=== PATIENT | male | born 1955 | race Caucasian/White ===

== ENCOUNTER 2019-08-26 15:41 | Outpatient (CLI) | payer MEDICARE ==
--- NOTE | 2019-08-29 16:04 | MRI ---
MRI RIGHT KNEE WITHOUT CONTRAST: 08/29/19 HISTORY: M23.91, internal derangement of right knee. Evaluate for meniscal tear. COMPARISON: None. FINDINGS: MEDIAL MENISCUS: There is a very faint peripheral most vertical osteomeatal tear of the posterior horn and body juncti on medial meniscus with low grade adjacent capsular edema. There is also a low grade radial tear of t he posterior horn medial meniscus 9 mm from the root involving the free edge and portion of the inter mediate zone. LATERAL MENISCUS: Intact. ACL has mild intraligamentous degeneration with ganglion pseudocyst. The posterior cruciate ligament is intact as well as the medial and lateral collateral ligaments. EXTENSOR MECHANISM: Quadriceps tendon, patella and patellar tendon are all intact. CARTILAGE: Patellofemoral compartment: There is a single full thickness cartilage fissure of the medial trochlea with early subcortical reac tive marrow edema. A few cartilage fissures of 50 to 75% thickness of the central trochlea. Medial compartment: Minimal chondral dehydration. No full thickness defect. Lateral compartment: There is 50 to 75% chondral fraying throughout the central weightbearing surface lateral femoral cond yle without full thickness detect. No significant delamination. MUSCLES: The muscle signal and bulk is normal. SOFT TISSUES: No significant joint effusion. Trace semimembranosus bursa effusion. IMPRESSION: 1. Fairly low grade peripheral vertical tear to the posterior horn and body junction medial meni scus at the capsule with mild pericapsular edema. 2. Faint radial tear involving the free edge of the medial meniscal body, 9 mm from the footprin t. 3. No gutter extrusion of the medial meniscus. 4. A single full thickness cartilage fissure of the medial patellar facet with early subcortical reactive marrow edema axial image 20. 5. 50 to 75% chondral fraying throughout the central weightbearing surface lateral to the platea u without a full thickness chondral defect, delamination, or subcortical reactive marrow changes. 6. A few 75% chondral fissures of the central trochlea. POS: CET
== END 2019-08-26 15:42 | disposition home or self-care (01) ==
LOC: SCSMRI 15:41
PROVIDERS: ATTEND Orthopaedic Surgery
DX: M23.91 Unspecified internal derangement of right knee (principal); M94.8X6 Other specified disorders of cartilage, lower leg

== ENCOUNTER 2019-12-05 06:49 | Outpatient (CLI) | payer MEDICARE, OTHER ==
[2019-12-05 16:53] LABS: #Basophils 0.1 thou/uL (0.0-0.2); #Eosinphils 0.1 thou/uL (0.0-0.7); #Lymphocytes 3.1 thou/uL (1.20-3.40); #Monocytes 0.6 thou/uL (0.11-0.59); #Neutrophils 4.2 thou/uL (1.40-6.50); %Basophils 0.9 % (0.0-1.0); %Eosinophils 1.3 % (0.0-10.0); %Lymphocytes 38.6 % (21.0-51.0); %Monocytes 7.4 % (0.0-10.0); %Neutrophils 51.7 % (42.0-75.0); Mean Corpuscular HGB CONC 34.2 g/dL (32.0-36.0); Mean Corpuscular Hemoglobin 31.5 pg (27.0-31.0); Mean Corpuscular Volume 92.2 fL (78.0-98.0); Mean Platelet Volume 7.1 fL (7.4-10.4); Platelet Count 201 thou/uL (130-400); RBC Distribution Width 11.9 % (11.5-14.5); Red Blood Cell (RBC) Count 4.76 mill/uL (4.70-6.10); White Blood Cell (WBC) Count 8.1 thou/uL (4.8-10.8)
[2019-12-05 17:13] LABS: Anion Gap 11 mmol/L (10-20); BUN (Urea Nitrogen) 12 mg/dL (8.4-25.7); Calc. Creatinine Clearance 0 mL/min (70-130); Calcium 9.2 mg/dL (7.8-10.44); Carbon Dioxide 25 mmol/L (23-31); Chloride 108 mmol/L (98-107); Estimated GFR-MDRD 60; Glucose 89 mg/dL (80-115); Sodium 140 mmol/L (136-145)
[2019-12-06 17:22] LABS: SARS-CoV-2 MS2 Positive; SARS-CoV-2 N Gene Negative; SARS-CoV-2 S Gene Negative; SARS-CoV-2 orf1ab Negative
== END 2019-12-05 06:50 | disposition home or self-care (01) ==
LOC: LABBT 06:49
PROVIDERS: ATTEND Orthopaedic Surgery
DX: Z01.818 Encounter for other preprocedural examination (principal); Z11.59 Encounter for screening for other viral diseases; M23.91 Unspecified internal derangement of right knee
CPT/HCPCS: 80048; 85025; 93005; U0003; 87635; 93010

== ENCOUNTER 2019-12-10 08:22 | Day surgery (SDC) | payer MEDICARE ==
[2019-12-05 15:18] VITALS: BMI 28.6
--- NOTE | 2019-12-10 08:41 | HP ---
HISTORY OF PRESENT ILLNESS: The patient is a 63-year-old male with a several year history of progressive pain to the right knee, which has become worse especially recently without specific injury. He has pain with activities including kneeling. He only had partial relief with use of NSAIDs and previous cortisone injection, which only gave temporary relief. He is not having pain with day-to-day activities. PAST MEDICAL HISTORY: The patient has history of hyperlipidemia, anemia, hypertension, chronic kidney disease, BPH. CURRENT MEDICATIONS: Include: 1. Meloxicam. 2. Zyrtec. 3. Metoprolol. 4. Omeprazole. 5. Potassium. ALLERGIES: HE IS ALLERGIC TO LIPITOR. FAMILY HISTORY: Otherwise unremarkable. SOCIAL HISTORY: Otherwise unremarkable. REVIEW OF SYSTEMS: Otherwise unremarkable. PHYSICAL EXAMINATION: GENERAL: Reveals a healthy male. HEENT: Unremarkable. NECK: Supple. CHEST: Clear. HEART: Regular rhythm. ABDOMEN: Soft, nontender. RECTAL: Deferred. GENITAL: Deferred. EXTREMITIES: Pertinent findings related to the right knee. There is no effusion. There is normal alignment. There is tenderness over the medial joint line. Range of motion is 0 to 135 degrees. There is no instability. Has palpable distal pulses. DIAGNOSTIC STUDIES: X-rays of his right knee reveal mild degenerative changes with good joint space remaining. MRI scan of the right knee reveals a possible peripheral tear of the posterior horn of the medial meniscus and a radial tear involving the meniscal body. There are mild degenerative changes. IMPRESSION: Internal derangement of right knee. Possible medial meniscal tear, possible component of degenerative joint disease. PLAN: Arthroscopy, right knee with partial medial meniscectomy and/or debridement and shaving. The nature of the surgery, length of recovery, potential complications such as infection, loss of motion, incomplete relief, thromboembolic phenomena, neurovascular injury, progression of DJD, recurrent tear, need for additional treatment, repeat surgery have been discussed in detail. Job ID: [id number]
[2019-12-10] MEDS ORDERED: Fentanyl 100 MCG/2 ML VIAL ONE (08:54)
[2019-12-10] MEDS ORDERED: Bupivacaine 0.25% HCL 30 ML VIAL ONE (09:00)
[2019-12-10] MEDS ORDERED: Lidocaine 1% w/Epinephrine 1:100K 20 ML VIAL ONE (09:00)
[2019-12-10] MEDS ORDERED: SUGAMMADEX SODIUM 200 MG/2 ML VIAL ONE (10:27)
[2019-12-10] MEDS ORDERED: Lidocaine 1% PF 5 ML VIAL ONE (11:36)
[2019-12-10] MEDS ORDERED: EPHEDRINE 25 MG/5 ML SYRINGE ONE (11:36)
[2019-12-10] MEDS ORDERED: Glycopyrrolate 0.2 MG/ML 5 ML SYRINGE ONE (11:36)
[2019-12-10] MEDS ORDERED: Rocuronium Bromide 10 MG/ML (10ML VIAL) ONE (11:36)
[2019-12-10] MEDS ORDERED: PROPOFOL 200 MG/20 ML VIAL ONE (11:36)
[2019-12-10] MEDS ORDERED: Ondansetron PF 4 MG/2 ML Vial ONE (11:36)
--- NOTE | 2019-12-10 12:49 | OP ---
DATE OF PROCEDURE: 12/10/2019 ANESTHESIA: General. PREOPERATIVE DIAGNOSIS: Internal derangement, right knee. 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 PROCEDURES PERFORMED: Arthroscopy with debridement and shaving/chondroplasty of medial femoral condyle and lateral tibial plateau. OPERATIVE FINDINGS: Examination under anesthesia revealed the knee to be stable. At arthroscopy, there is mild chondromalacia of patella, grade 1 to 2, but no areas needing shaving. Examination of the medial compartment revealed the medial meniscus to be intact and not demonstrate a tear. It was noted that the MRI scan showed a possible peripheral tear. There may have been some slight degeneration along the free margin of the meniscus, but I did not see any distinct tear. There was an approximately 1 x 2 cm area of chondromalacia and chondral defect along the lateral aspect of the weightbearing surface of the medial femoral condyle, which it was not down to bone. There was a flap of articular surface. ACL was intact. Lateral meniscus revealed some fraying of the free margin, but the bulk of meniscus intact. There was a grade 2 chondromalacia and early grade 3 chondromalacia of the lateral tibial plateau, but no areas of exposed bone. DESCRIPTION OF PROCEDURE: After satisfactory anesthesia was induced in supine position, the patient was placed in a leg nettles and then prepped and draped in routine manner. The right leg was elevated and exsanguinated with an Esmarch bandage and the tourniquet inflated to 250 mmHg. Brandon arthroscope was introduced through anterolateral portal, probed through anteromedial portal. Inflow and outflow accomplished through the scope using a Cavis microcaps arthroscopy pump. Arthroscopy was carried out. The above findings were noted. All findings were documented with video printer. The chondral defect of the medial femoral condyle was debrided with a motorized shaver and all loose fronds of articular surface were smoothed and the defect contoured and probed and found to be stable. Some of the loose fronds of the lateral tibial plateau was similarly debrided with a motorized shaver. The scope was then introduced into the anterior medial portal and all compartments visualized. No additional pathology found. The knee was then copiously irrigated through the scope and all instruments were withdrawn. 30 mL of 0.5% plain Marcaine and 20 mL of 1% lidocaine with epinephrine were instilled into the knee joint and then an additional 10 mL of this mixture injected at each portal site. The portal sites were closed with 3-0 nylon. A sterile bulky compressive dressing was applied and the tourniquet deflated after 21 minutes. The foot promptly pinked up. The patient was awakened and taken to the recovery room in stable condition. There were no apparent intraoperative complications. The estimated blood loss was negligible. The patient will be discharged home in satisfactory condition, instructed on ice and elevation, use of crutches, home exercise program by Physical Therapy Department. He was given written wound care instructions and he has Kunia 7.5 at home for pain. He will be rechecked in my office in 10 days to 2 weeks or sooner if there are any problems prior to that time. Job ID: [id number]
== END 2019-12-10 13:20 | disposition home or self-care (01) ==
LOC: SDC 08:22
PROVIDERS: ATTEND Orthopaedic Surgery
PROC: 0SBC4ZZ Excision of Right Knee Joint, Percutaneous Endoscopic Approach (ICD-10-PCS; principal; 2019-12-10)
DX: M17.11 Unilateral primary osteoarthritis, right knee (principal); M94.261 Chondromalacia, right knee; E78.5 Hyperlipidemia, unspecified; I12.9 Hypertensive chronic kidney disease with stage 1 through stage 4 chronic kidney disease, or unspecified chronic kidney disease; N18.3 Chronic kidney disease, stage 3 (moderate); D63.1 Anemia in chronic kidney disease; N40.0 Benign prostatic hyperplasia without lower urinary tract symptoms; M19.90 Unspecified osteoarthritis, unspecified site; E78.00 Pure hypercholesterolemia, unspecified; Z79.899 Other long term (current) drug therapy
CPT/HCPCS: J0690; J2001; J2405; J2704; J3010; S0020

== ENCOUNTER 2022-07-11 10:57 | Outpatient (CLI) | payer MEDICARE, OTHER ==
[2022-07-11 12:36] LABS: Hemoglobin 14.2 g/dL (13.5-17.5); Mean Corpuscular HGB CONC 34.8 g/dL (32.0-36.0); Mean Corpuscular Hemoglobin 30.4 pg (27.0-33.0); Mean Corpuscular Volume 87.4 fl (81.2-95.1); Mean Platelet Volume 9.1 fl (7.4-10.4); Platelet Count 252 10x3/uL (150-450); RBC Distribution Width 11.9 % (11.5-14.5); Red Blood Cell (RBC) Count 4.67 10x6/uL (4.32-5.72); White Blood Cell (WBC) Count 6.6 10x3/uL (3.5-10.5)
[2022-07-11 12:50] LABS: INR-International Normal Ratio 0.9; PTT 26.5 sec (22.0-33.0); Prothrombin Time 10.3 sec (9.5-12.1)
[2022-07-11 12:54] LABS: ALT (SGPT) 21 U/L (8-55); AST (SGOT) 22 U/L (5-34); Albumin 4.5 g/dL (3.4-4.8); Alkaline Phosphatase 71 U/L (40-110); Anion Gap 14 mmol/L (10-20); BUN (Urea Nitrogen) 18 mg/dL (8.4-25.7); Bilirubin, Total 0.5 mg/dL (0.2-1.2); Calc. Creatinine Clearance 0 mL/min (70-130); Calcium 9.7 mg/dL (7.8-10.44); Carbon Dioxide 23 mmol/L (23-31); Chloride 105 mmol/L (98-107); Estimated GFR 56; Globulin 2.8 g/dL (2.4-3.5); Glucose 170 mg/dL (80-115); Potassium 3.8 mmol/L (3.5-5.1); Protein, Total 7.3 g/dL (5.8-8.1); Sodium 138 mmol/L (136-145)
[2022-07-11 12:58] LABS: Bilirubin Neg (Negative); Blood, Urine Negative (Negative); Clarity Clear (Clear); Glucose, Urine (Dipstick) 100 mg/dL (Negative); Ketone, Urine Negative (Negative); Leukocyte Negative (Negative); Nitrite Negative (Negative); Protein, Urine (Dipstick) Negative (Neg-Trace); Specific Gravity, Urine 1.005 (1.005-1.030); Urobilinogen Normal mg/dL (Less than 2)
[2022-07-11 13:22] LABS: Bacteria/HPF None Seen HPF (None Seen); RBC/HPF None Seen HPF (0-3); Squamous Epithelial None Seen HPF (0-3); WBC/HPF None Seen HPF (0-3)
== END 2022-07-11 10:58 | disposition home or self-care (01) ==
LOC: LABBT 10:57
PROVIDERS: ATTEND Surgery
DX: Z01.818 Encounter for other preprocedural examination (principal); C61 Malignant neoplasm of prostate; I12.9 Hypertensive chronic kidney disease with stage 1 through stage 4 chronic kidney disease, or unspecified chronic kidney disease; N18.31 Chronic kidney disease, stage 3a; R97.20 Elevated prostate specific antigen [PSA]; N52.01 Erectile dysfunction due to arterial insufficiency; N40.1 Benign prostatic hyperplasia with lower urinary tract symptoms; R35.0 Frequency of micturition; R81 Glycosuria; K42.9 Umbilical hernia without obstruction or gangrene; R73.9 Hyperglycemia, unspecified
CPT/HCPCS: 71046; 80053; 81001; 85027; 85610; 85730; 87086

== ENCOUNTER 2022-07-24 05:45 | Inpatient (IN) | payer MEDICARE, OTHER ==
[2022-07-24] MEDS ORDERED: Fentanyl 250 MCG/5 ML VIAL ONE (06:49)
[2022-07-24] MEDS ORDERED: Bupivacaine/Epinephrine 0.25% 30 ML VIAL ONE ×2 (06:52→08:56)
[2022-07-24 06:55] LABS: Bacteria/HPF None Seen HPF (None Seen); Bilirubin Negative (Negative); Blood, Urine Trace (Negative); CAUTI Indications for Culture Urological Procedure; Clarity Clear (Clear); Glucose, Urine (Dipstick) Normal (Negative); Ketone, Urine Negative (Negative); Leukocyte Negative Leu/uL (Negative); Nitrite Negative (Negative); Protein, Urine (Dipstick) 10 mg/dL (Neg-Trace); RBC/HPF 0-3 HPF (0-3); Specific Gravity, Urine 1.018 (1.002-1.036); Squamous Epithelial None Seen HPF (0-3); Urobilinogen Normal mg/dL (Less than 2); WBC/HPF 0-3 HPF (0-3); pH, Urine 5.5 (5.0-9.0)
[2022-07-24 06:56] LABS: Sperm/HPF 4+ HPF (None Seen)
[2022-07-24 06:57] LABS: Urine Culture Reflex Yes Yes
[2022-07-24] MEDS ORDERED: Dexmedetomidine 200 MCG/2 ML VIAL ONE (07:05)
[2022-07-24] MEDS ORDERED: Levofloxacin 500 mg/D5W 100 ml Premix Bag ONE (07:19)
[2022-07-24] MEDS ORDERED: Sodium Chloride 0.9% 100 ML ONE (07:32)
[2022-07-24] MEDS ORDERED: ceFOXitin 1 GM VIAL ONE (07:32)
[2022-07-24] MEDS ORDERED: NEOSTIGMINE 3 MG/3 ML SYR 3 MG/3 ML SYRINGE ONE (07:57)
[2022-07-24] MEDS ORDERED: PROPOFOL 200 MG/20 ML VIAL ONE (07:57)
[2022-07-24] MEDS ORDERED: Rocuronium Bromide 10 MG/ML (10ML VIAL) ONE (07:57)
[2022-07-24] MEDS ORDERED: Ondansetron PF 4 MG/2 ML Vial ONE (07:57)
[2022-07-24] MEDS ORDERED: Glycopyrrolate 0.2 MG/ML 5 ML SYRINGE ONE (07:57)
[2022-07-24] MEDS ORDERED: Lidocaine 1% PF 5 ML VIAL ONE (07:57)
[2022-07-24] MEDS ORDERED: Dexamethasone 20 MG/5 ML VIAL ONE (07:57)
[2022-07-24] MEDS ORDERED: Vecuronium 10 MG VIAL ONE (07:57)
[2022-07-24] MEDS ORDERED: Phenylephrine 10 MG/ML VIAL ONE ×2 (08:56→12:36)
[2022-07-24] MEDS ORDERED: Ondansetron HCl/PF 4 MG/2 ML Vial IVP PRN (13:19)
[2022-07-24] MEDS ORDERED: Promethazine HCl 25 MG/ML VIAL IM PRN (13:19)
[2022-07-24] MEDS ORDERED: Ipratropium/Albuterol 3 ML NEB ONE (13:47)
[2022-07-24] MEDS ORDERED: Fentanyl 100 MCG/2 ML VIAL ONE ×3 (14:02→20:12)
[2022-07-24] MEDS ORDERED: Oxybutynin 5 MG TAB PO PRN (14:07)
[2022-07-24] MEDS ORDERED: Mag-Al 1200 mg/1200 mg/30 ML UDCUP PO PRN (14:07)
[2022-07-24] MEDS ORDERED: Ondansetron PF 4 MG/2 ML Vial IVP PRN (14:07)
[2022-07-24] MEDS ORDERED: diphenhydrAMINE 50 MG/ML VIAL IVP PRN (14:07)
[2022-07-24] MEDS ORDERED: Zolpidem Tartrate 5 MG TAB PO PRN (14:07)
[2022-07-24] MEDS ORDERED: hydrALAZINE 20 MG/ML VIAL SLOW IVP PRN (14:07)
[2022-07-24] MEDS ORDERED: Morphine 2 MG/ML VIAL SLOW IVP PRN (14:07)
[2022-07-24] MEDS ORDERED: HYDROcodone/Acetaminophen 10/325 mg Tablet PO PRN (14:07)
[2022-07-24] MEDS ORDERED: Hyoscyamine SL 0.125 MG TAB ONE (14:22)
[2022-07-24 14:32] LABS: #Lymphocytes 0.8 thou/uL (1.20-3.40); #Monocytes 0.2 thou/uL (0.11-0.59); #Neutrophils 9.2 thou/uL (1.40-6.50); %Basophils 0.4 % (0.0-1.0); %Eosinophils 0.1 % (0.0-10.0); %Lymphocytes 7.5 % (21.0-51.0); %Monocytes 2.1 % (0.0-10.0); %Neutrophils 89.8 % (42.0-75.0); Hemoglobin 12.7 g/dL (14.0-18.0); Mean Corpuscular HGB CONC 35.2 g/dL (32.0-36.0); Mean Corpuscular Hemoglobin 31.7 pg (27.0-31.0); Mean Corpuscular Volume 90.2 fl (78.0-98.0); Mean Platelet Volume 6.9 fL (7.4-10.4); Platelet Count 180 10x3/uL (130-400); RBC Distribution Width 11.5 % (11.5-14.5); Red Blood Cell (RBC) Count 3.99 mill/uL (4.70-6.10); White Blood Cell (WBC) Count 10.3 10x3/uL (4.8-10.8)
[2022-07-24] MEDS ORDERED: Phenazopyridine HCl 100 MG TAB PO PRN (14:33)
[2022-07-24 14:54] LABS: Anion Gap 14 mmol/L (10-20); BUN (Urea Nitrogen) 19 mg/dL (8.4-25.7); Calc. Creatinine Clearance 67 mL/min (70-130); Calcium 8.4 mg/dL (7.8-10.44); Carbon Dioxide 19 mmol/L (23-31); Chloride 109 mmol/L (98-107); Estimated GFR 63; Glucose 173 mg/dL (80-115); Potassium 4.1 mmol/L (3.5-5.1); Sodium 138 mmol/L (136-145)
[2022-07-24] MEDS: Sodium Chloride 0.9% 1,000 ML IV SCH ×2 (16:00→21:45)
[2022-07-24] MEDS ORDERED: HYDROcodone/Acetaminophen 5/325 mg Tablet ONE ×2 (18:37)
[2022-07-24] MEDS ORDERED: HYDROcodone/Acetaminophen 10/325 mg Tablet PO SCH (19:00)
[2022-07-24] MEDS ORDERED: Famotidine 20 MG TAB ONE (20:56)
[2022-07-24] MEDS: Loratadine 10 MG TAB PO SCH (20:59)
[2022-07-24] MEDS: Docusate 100 MG CAP PO SCH (20:59)
[2022-07-24] MEDS: Famotidine/PF 20 mg/2ml Vial SLOW IVP SCH (20:59)
[2022-07-24] MEDS: Amlodipine 5 MG TAB PO SCH (20:59)
[2022-07-24] MEDS: Potassium Chloride 8 MEQ TAB PO SCH (21:00)
[2022-07-24] MEDS: Metoprolol Tartrate 50 MG TAB PO SCH (21:00)
[2022-07-24 21:47] LABS: SARS-CoV-2 NAA Rapid Test Not Detected (NotDetected)
[2022-07-24] MEDS ORDERED: Fluticasone Propionate Nasal Spray 16 gm Bottle NASAL PRN (22:10)
[2022-07-24] MEDS: Morphine 4 MG/ML VIAL SLOW IVP PRN (23:00)
[2022-07-25 02:32] VITALS: BMI 31.1
[2022-07-25] MEDS: Morphine 4 MG/ML VIAL SLOW IVP PRN (03:10)
[2022-07-25] MEDS: cefTRIAXone\\ROCEPHIN 1 GM in Sodium Chloride 0.9% 100 ML IVPB SCH (05:04)
[2022-07-25] MEDS: HYDROcodone/Acetaminophen 10/325 mg Tablet PO PRN ×2 (05:04→16:42)
[2022-07-25] MEDS: Sodium Chloride 0.9% 1,000 ML IV SCH (05:09)
[2022-07-25 06:06] LABS: #Lymphocytes 1.2 thou/uL (1.20-3.40); #Monocytes 0.9 thou/uL (0.11-0.59); #Neutrophils 6.8 thou/uL (1.40-6.50); %Basophils 0.1 % (0.0-1.0); %Eosinophils 0.2 % (0.0-10.0); %Lymphocytes 13.6 % (21.0-51.0); %Monocytes 9.6 % (0.0-10.0); %Neutrophils 76.5 % (42.0-75.0); Hemoglobin 11.3 g/dL (14.0-18.0); Mean Corpuscular HGB CONC 33.7 g/dL (32.0-36.0); Mean Corpuscular Hemoglobin 30.9 pg (27.0-31.0); Mean Corpuscular Volume 91.7 fl (78.0-98.0); Platelet Count 178 10x3/uL (130-400); RBC Distribution Width 11.7 % (11.5-14.5); Red Blood Cell (RBC) Count 3.64 mill/uL (4.70-6.10); White Blood Cell (WBC) Count 8.9 10x3/uL (4.8-10.8)
[2022-07-25 06:31] LABS: Anion Gap 10 mmol/L (10-20); BUN (Urea Nitrogen) 13 mg/dL (8.4-25.7); Calc. Creatinine Clearance 83 mL/min (70-130); Calcium 8.2 mg/dL (7.8-10.44); Carbon Dioxide 21 mmol/L (23-31); Chloride 112 mmol/L (98-107); Estimated GFR 74; Glucose 119 mg/dL (80-115); Potassium 4.2 mmol/L (3.5-5.1); Sodium 139 mmol/L (136-145)
[2022-07-25] MEDS: Amlodipine 5 MG TAB PO SCH ×2 (08:50→21:33)
[2022-07-25] MEDS: Metoprolol Tartrate 50 MG TAB PO SCH ×2 (08:50→21:34)
[2022-07-25] MEDS: Docusate 100 MG CAP PO SCH ×2 (08:50→21:33)
[2022-07-25] MEDS: Famotidine/PF 20 mg/2ml Vial SLOW IVP SCH ×2 (11:40→21:34)
[2022-07-25] MEDS: Potassium Chloride 8 MEQ TAB PO SCH ×2 (11:46→21:32)
[2022-07-25 14:56] LABS: Hemoglobin 11.4 g/dL (14.0-18.0)
[2022-07-25] MEDS: Loratadine 10 MG TAB PO SCH (21:34)
[2022-07-26] MEDS: cefTRIAXone\\ROCEPHIN 1 GM in Sodium Chloride 0.9% 100 ML IVPB SCH (06:04)
[2022-07-26 07:41] LABS: #Eosinphils 0.1 thou/uL (0.0-0.7); #Lymphocytes 2.2 thou/uL (1.20-3.40); #Monocytes 0.7 thou/uL (0.11-0.59); #Neutrophils 6.6 thou/uL (1.40-6.50); %Basophils 0.2 % (0.0-1.0); %Eosinophils 0.9 % (0.0-10.0); %Lymphocytes 22.9 % (21.0-51.0); %Monocytes 7.1 % (0.0-10.0); %Neutrophils 68.9 % (42.0-75.0); Hemoglobin 12.3 g/dL (14.0-18.0); Mean Corpuscular HGB CONC 34.3 g/dL (32.0-36.0); Mean Corpuscular Hemoglobin 31.3 pg (27.0-31.0); Mean Corpuscular Volume 91.3 fl (78.0-98.0); Mean Platelet Volume 7.4 fL (7.4-10.4); Platelet Count 180 10x3/uL (130-400); RBC Distribution Width 11.9 % (11.5-14.5); Red Blood Cell (RBC) Count 3.93 mill/uL (4.70-6.10); White Blood Cell (WBC) Count 9.6 10x3/uL (4.8-10.8)
[2022-07-26] MEDS ORDERED: Bisacodyl 10 MG SUPP PR SCH (07:45)
[2022-07-26 07:49] LABS: Anion Gap 12 mmol/L (10-20); BUN (Urea Nitrogen) 11 mg/dL (8.4-25.7); Calc. Creatinine Clearance 79 mL/min (70-130); Calcium 8.9 mg/dL (7.8-10.44); Carbon Dioxide 21 mmol/L (23-31); Chloride 108 mmol/L (98-107); Estimated GFR 69; Glucose 107 mg/dL (80-115); Potassium 3.8 mmol/L (3.5-5.1); Sodium 137 mmol/L (136-145)
[2022-07-26] MEDS: Amlodipine 5 MG TAB PO SCH ×2 (09:10→20:55)
[2022-07-26] MEDS: HYDROcodone/Acetaminophen 10/325 mg Tablet PO PRN ×2 (09:11→18:12)
[2022-07-26] MEDS: Metoprolol Tartrate 50 MG TAB PO SCH ×2 (09:11→20:55)
[2022-07-26] MEDS: Potassium Chloride 8 MEQ TAB PO SCH ×2 (09:11→20:56)
[2022-07-26] MEDS: Docusate 100 MG CAP PO SCH ×2 (09:11→20:55)
[2022-07-26] MEDS: Famotidine/PF 20 mg/2ml Vial SLOW IVP SCH ×2 (13:28→20:55)
[2022-07-26] MEDS ORDERED: Metoclopramide HCl 10 MG/2 ML VIAL IVP SCH (18:00)
[2022-07-26] MEDS: Loratadine 10 MG TAB PO SCH (20:55)
[2022-07-26] MEDS: Metoclopramide HCl 10 MG/2 ML VIAL IVP SCH (20:56)
[2022-07-27] MEDS: Metoclopramide HCl 10 MG/2 ML VIAL IVP SCH ×3 (05:24→21:19)
[2022-07-27] MEDS: cefTRIAXone\\ROCEPHIN 1 GM in Sodium Chloride 0.9% 100 ML IVPB SCH (05:24)
[2022-07-27 06:06] LABS: #Eosinphils 0.1 thou/uL (0.0-0.7); #Lymphocytes 2.3 thou/uL (1.20-3.40); #Monocytes 0.6 thou/uL (0.11-0.59); #Neutrophils 4.6 thou/uL (1.40-6.50); %Basophils 0.1 % (0.0-1.0); %Eosinophils 1.9 % (0.0-10.0); %Lymphocytes 29.8 % (21.0-51.0); %Monocytes 8.1 % (0.0-10.0); %Neutrophils 60.1 % (42.0-75.0); Hemoglobin 12.1 g/dL (14.0-18.0); Mean Corpuscular HGB CONC 33.9 g/dL (32.0-36.0); Mean Corpuscular Hemoglobin 30.9 pg (27.0-31.0); Mean Corpuscular Volume 91.3 fl (78.0-98.0); Mean Platelet Volume 6.9 fL (7.4-10.4); Platelet Count 159 10x3/uL (130-400); RBC Distribution Width 11.7 % (11.5-14.5); White Blood Cell (WBC) Count 7.6 10x3/uL (4.8-10.8)
[2022-07-27 06:28] LABS: Anion Gap 13 mmol/L (10-20); BUN (Urea Nitrogen) 12 mg/dL (8.4-25.7); Calc. Creatinine Clearance 83 mL/min (70-130); Calcium 8.9 mg/dL (7.8-10.44); Carbon Dioxide 21 mmol/L (23-31); Chloride 107 mmol/L (98-107); Estimated GFR 74; Glucose 90 mg/dL (80-115); Sodium 137 mmol/L (136-145)
[2022-07-27] MEDS: Amlodipine 5 MG TAB PO SCH ×2 (08:49→21:18)
[2022-07-27] MEDS: Metoprolol Tartrate 50 MG TAB PO SCH ×2 (08:50→21:18)
[2022-07-27] MEDS: Docusate 100 MG CAP PO SCH ×2 (08:50→21:19)
[2022-07-27] MEDS: Potassium Chloride 8 MEQ TAB PO SCH ×2 (08:50→21:19)
[2022-07-27] MEDS: Famotidine/PF 20 mg/2ml Vial SLOW IVP SCH ×2 (08:52→21:19)
[2022-07-27] MEDS: Ketorolac Tromethamine 30 MG/ML VIAL IVP SCH ×3 (13:00→23:46)
[2022-07-27] MEDS: Loratadine 10 MG TAB PO SCH (21:18)
[2022-07-28] MEDS ORDERED: FLU VACC QS2022-23(65YR UP)/PF 240 MCG/0.7 ML SYRINGE IM ONE (03:45)
[2022-07-28] MEDS: Metoclopramide HCl 10 MG/2 ML VIAL IVP SCH (05:12)
[2022-07-28] MEDS: Ketorolac Tromethamine 30 MG/ML VIAL IVP SCH (05:12)
[2022-07-28 05:46] LABS: #Eosinphils 0.2 thou/uL (0.0-0.7); #Lymphocytes 2.5 thou/uL (1.20-3.40); #Monocytes 0.5 thou/uL (0.11-0.59); #Neutrophils 3.1 thou/uL (1.40-6.50); %Basophils 0.5 % (0.0-1.0); %Eosinophils 3.1 % (0.0-10.0); %Lymphocytes 38.7 % (21.0-51.0); %Monocytes 8.5 % (0.0-10.0); %Neutrophils 49.3 % (42.0-75.0); Hemoglobin 12.5 g/dL (14.0-18.0); Mean Corpuscular HGB CONC 34.2 g/dL (32.0-36.0); Mean Corpuscular Hemoglobin 30.9 pg (27.0-31.0); Mean Corpuscular Volume 90.3 fl (78.0-98.0); Platelet Count 185 10x3/uL (130-400); RBC Distribution Width 11.6 % (11.5-14.5); Red Blood Cell (RBC) Count 4.04 mill/uL (4.70-6.10); White Blood Cell (WBC) Count 6.4 10x3/uL (4.8-10.8)
[2022-07-28 06:07] LABS: Anion Gap 13 mmol/L (10-20); BUN (Urea Nitrogen) 12 mg/dL (8.4-25.7); Calc. Creatinine Clearance 76 mL/min (70-130); Calcium 9.2 mg/dL (7.8-10.44); Carbon Dioxide 24 mmol/L (23-31); Chloride 106 mmol/L (98-107); Estimated GFR 67; Glucose 100 mg/dL (80-115); Potassium 4.2 mmol/L (3.5-5.1); Sodium 139 mmol/L (136-145)
[2022-07-28] MEDS: Docusate 100 MG CAP PO SCH (08:41)
[2022-07-28] MEDS: Potassium Chloride 8 MEQ TAB PO SCH (08:41)
[2022-07-28] MEDS: Metoprolol Tartrate 50 MG TAB PO SCH (08:41)
[2022-07-28] MEDS: Amlodipine 5 MG TAB PO SCH (08:41)
[2022-07-28] MEDS: Famotidine/PF 20 mg/2ml Vial SLOW IVP SCH (08:42)
[2022-07-28 09:04] VITALS: BP 167/81; TEMP 98.3
== END 2022-07-28 09:45 | disposition home or self-care (01) | DRG 707 ==
LOC: SDC 05:45 → SURG B 21:29
PROVIDERS: ADMIT Urology; ATTEND Urology
PROC: 0VT04ZZ Resection of Prostate, Percutaneous Endoscopic Approach (ICD-10-PCS; principal; 2022-07-24)
PROC: 8E0W4CZ Robotic Assisted Procedure of Trunk Region, Percutaneous Endoscopic Approach (ICD-10-PCS; 2022-07-24)
PROC: 0TJB8ZZ Inspection of Bladder, Via Natural or Artificial Opening Endoscopic (ICD-10-PCS; 2022-07-24)
PROC: 3E033XZ Introduction of Vasopressor into Peripheral Vein, Percutaneous Approach (ICD-10-PCS; 2022-07-24)
DX: C61 Malignant neoplasm of prostate (principal); K56.7 Ileus, unspecified; Z20.822 Contact with and (suspected) exposure to COVID-19
CPT/HCPCS: 36415; 80048; 81001; 82570; 85025; 86850; 86900; 86901; 87086; 88309; C1713; C1776; J0694; J0696; J1100; J1885; J1956; J2270; J2370; J2405; J2704; J2765; J3010; J3490; J7050; J7620; S0028; U0002